=== PATIENT | male | born 1995 | race Caucasian/White ===

== ENCOUNTER 2024-04-16 18:59 | Emergency (ER) | payer OTHER, SELFPAY ==
[2024-04-16 19:06] VITALS: BP 153/105; PULSE 103; TEMP 37; O2SAT 97; BMI 40.0
--- NOTE | 2024-04-16 19:26 | XR_ITS ---
The [address] [address] Patient Name: SUKHJINDER MAIER MRN: [id number] date: 1995 Sex: M Assigned Patient Location: ER Current Patient Location: Accession/Order Number: [id number] Exam Date: 04/16/2024 19:38 Report Date: 04/16/2024 21:58 At the request of: ALANA BALDERAS Procedure: XR hand KOFFI min 3v EXAM: XR hand KOFFI min 3v HISTORY: crush injury COMPARISON: None. TECHNIQUE: 6 views of bilateral Hands FINDINGS: No acute fracture seen. Joint alignment is normal. Joint spaces are preserved. Soft tissues appear unremarkable. XR/XR hand KOFFI min 3v IMPRESSION: No acute fracture or malalignment. Electronically authenticated by: ALMA ROSA RUDOLPH Date: 04/16/2024 21:58
[2024-04-16] MEDS: BACITRACIN 0.9 GM PACKET 1 PACKET TOPICAL ×2 (19:35→20:31)
--- NOTE | 2024-04-16 19:35 | ED.UPPEXIN1 ---
HPI HPI - Extremity Injury (Upper) General Chief Complaint: Extremity Injury, Upper Stated Complaint: HAND INJURY Time Seen by Provider: 04/16/24 19:02 Source: patient Mode of arrival: walk-in Limitations: no limitations History of Present Illness HPI narrative: Patient is a 28-year-old male who presents to the emergency department for evaluation of an injury to the hands that occurred at work. Patient states he got his hands caught in a machine at work and he sustained multiple abrasions and lacerations to the right hand. He reports minimal pain at this time. Unknown last tetanus. Bleeding is well-controlled at this time. No medications taken prior to arrival. Related Data Previous Rx's ?Medication ?Instructions ?Recorded cephalexin 500 mg capsule 500 mg PO Q8H 10 days #30 caps 04/16/24 hydrocodone 5 mg-acetaminophen 325 1 tab PO Q6H PRN pain 3 days #12 04/16/24 mg tablet tabs ketorolac 10 mg tablet 10 mg PO TID PRN pain #10 tabs 04/16/24 Allergies Allergy/AdvReac Type Severity Reaction Status Date / Time No Known Drug Allergies Allergy Verified 04/16/24 19:06 Opioid HPI Opioid Management Most Recent Pain and Opioid Data: No Data to Display Review of Systems ROS Constitutional Denies: fever or chills Ears, nose, mouth, and throat Denies: throat pain or nasal congestion Respiratory Denies: shortness of breath Gastrointestinal Denies: nausea or vomiting Musculoskeletal Reports: extremity pain; Denies: back pain or neck pain Integumentary/Breast Denies: skin pain Neurological Denies: numbness in extremities or weakness in extremities Hematologic/Lymphatic Denies: easy bruising or easy bleeding PFSH PFS Social History Little interest or pleasure in doing things: not at all Feeling down, depressed, or hopeless: not at all Exam Narrative Exam Narrative: Gen.: Awake, alert, in no distress Head: Normocephalic, atraumatic ENT: Moist mucous membranes Respiratory: No respiratory distress Extremities: Left hand with no swelling, obvious deformity of the fingers. Full flexion and extension of all fingers with a small abrasion noted to the dorsum of the left third finger. Right hand with normal flexion and extension of the fingers, no evidence of tendon deficit or tendon visualization. Multiple superficial abrasions on the palmar aspect of the fingers of the right hand with 2 cm laceration over the PIP joint of the right index finger, 1 cm laceration over the PIP joint of the right middle finger and 0.5 cm puncture wound noted over the proximal phalanx/dorsal aspect of the right fourth finger. No active bleeding Psych: Normal mood and affect Neuro: No focal neuro deficit Skin: Warm, dry Constitutional Vital Signs, click to edit/add: Last Vital Signs Temp 98.6 F 04/16/24 19:06 Pulse 103 H 04/16/24 19:06 Resp 18 04/16/24 19:06 BP 153/105 H 04/16/24 19:06 Pulse Ox 97 04/16/24 19:06 O2 Del Method Room Air 04/16/24 19:06 Course Vital Signs Vital signs: Vital Signs Temperature 98.6 F 04/16/24 19:06 Pulse Rate 103 H 04/16/24 19:06 Respiratory Rate 18 04/16/24 19:06 Blood Pressure 153/105 H 04/16/24 19:06 Pulse Oximetry 97 04/16/24 19:06 Oxygen Delivery Method Room Air 04/16/24 19:06 Temperature 98.6 F 04/16/24 19:06 Pulse Rate 103 H 04/16/24 19:06 Respiratory Rate 18 04/16/24 19:06 Blood Pressure 153/105 H 04/16/24 19:06 Pulse Oximetry 97 04/16/24 19:06 Oxygen Delivery Method Room Air 04/16/24 19:06 MDM - Extremity Injury (Upper) MDM Narrative Medical decision making narrative: X-rays of both hands were reviewed by myself and attending physician. There is significant delay with radiologist reads, no obvious fracture or dislocation noted. Tetanus is updated. Patient started on Keflex in the ER. Pain medication, he will take this home as he has no significant pain at this time. No focal neurodeficits noted on exam. Lacerations were repaired with sutures, please see procedure note for details. He was given a referral for occupational health for suture removal. Return to the ER if symptoms change or worsen. Short course of analgesics, NSAIDs and antibiotics for 10 days given for home. Laceration repair: Done under sterile conditions. The use of Shur-Clens prep the area. Local injection with lidocaine 1% was used, approximately 3 cc to the right 2nd and 3rd fingers. 2cc injected into the puncture wound of the right 4th finger. The wound was irrigated copiously with normal saline. The wound was explored there was no evidence of foreign material. The laceration was approximated with 4-0 nylon. 3 simple interrupted sutures were placed to the right 2nd finger, 2 sutures placed in the right 3rd finger and 1 suture placed to the right 4th finger. Patient tolerated the procedure well. The patient was neurovascularly intact post. the patient had bacitracin applied to the laceration and a dry sterile dressing was place. The patient will need to follow-up in the next 7-10 days for removal SUPERVISED APC VISIT, PHYSICIAN ATTESTATION: Based on the medical record the care appears appropriate. Medical Records Attestation: I reviewed the patient's medical records. Imaging Data XR hand: Attestation: I have reviewed the pertinent imaging results. Radiologist's impression: ITS Impressions Hand X-Ray 04/16/24 19:26 IMPRESSION: No acute fracture or malalignment. Electronically authenticated by: ALMA ROSA RUDOLPH Date: 04/16/2024 21:58 Discharge Plan Discharge Chief Complaint: Extremity Injury, Upper Clinical Impression: Crush injury of hand, Laceration of right hand Patient Disposition: Home, Self-Care Time of Disposition Decision: 19:37 Condition: Good Prescriptions / Home Meds: New hydrocodone-acetaminophen 5-325 mg tablet 1 tab PO Q6H PRN (Reason: pain) 3 Days Qty: 12 0RF Rx Instructions: M79.641 ketorolac 10 mg tablet 10 mg PO TID PRN (Reason: pain) Qty: 10 0RF cephalexin 500 mg capsule 500 mg PO Q8H 10 Days Qty: 30 0RF Print Language: Irish Instructions: Laceration (ED), Crush Injury (ED) Additional Instructions: Follow up with occupational health for suture removal in 8-10 days Referrals: [facility] - [facility] week Discharge Date/Time: 04/16/24 20:37
[2024-04-16] MEDS: CEPHALEXIN 500 MG CAPSULE PO (19:36)
[2024-04-16] MEDS: LIDOCAINE HCL 1% 100 MG/10 ML MDV INJ (19:36)
[2024-04-16] MEDS: ADACEL DIPH,PERTUSS(ACELL),TET VAC/PF 0.5 ML ADULT SYRINGE IM (19:41)
[2024-04-16] MEDS: HYDROCODONE/ACET 5-325 MG TABLET 1 TAB PO (20:30)
== END 2024-04-16 20:37 | disposition home or self-care (01) ==
PROVIDERS: Emergency Provider Internal Medicine
DX: S61.210A Laceration without foreign body of right index finger without damage to nail, initial encounter (principal); S61.212A Laceration without foreign body of right middle finger without damage to nail, initial encounter; S61.214A Laceration without foreign body of right ring finger without damage to nail, initial encounter; S60.413A Abrasion of left middle finger, initial encounter; S61.234A Puncture wound without foreign body of right ring finger without damage to nail, initial encounter; Z23 Encounter for immunization; W31.89XA Contact with other specified machinery, initial encounter
CPT/HCPCS: 12002; 73130; 90471; 90715; 99285